=== PATIENT | female | born 1950 ===

== ENCOUNTER 2018-12-25 09:30 | Outpatient (CLI) | payer MEDICARE | END 2018-12-25 09:31 | disposition home or self-care (01) | LOC: C.LAB 09:30 | DX: K76.0 Fatty (change of) liver, not elsewhere classified (principal); E78.01 Familial hypercholesterolemia; D69.6 Thrombocytopenia, unspecified; E01.2 Iodine-deficiency related (endemic) goiter, unspecified; E11.9 Type 2 diabetes mellitus without complications; C50.911 Malignant neoplasm of unspecified site of right female breast ==

== ENCOUNTER → 2019-04-03 | Outpatient (CLI) | payer MEDICARE | LOC: C.LAB 09:05 | DX: K76.0 Fatty (change of) liver, not elsewhere classified (principal); E78.01 Familial hypercholesterolemia; E01.2 Iodine-deficiency related (endemic) goiter, unspecified; E11.9 Type 2 diabetes mellitus without complications; D69.6 Thrombocytopenia, unspecified; C50.911 Malignant neoplasm of unspecified site of right female breast ==